=== PATIENT | female | born 1935 | race Caucasian/White ===

== ENCOUNTER 2016-07-07 12:14 | Outpatient (CLI) | payer MEDICARE, OTHER | END 2016-07-07 12:15 | disposition home or self-care (01) | DX: M81.0 Age-related osteoporosis without current pathological fracture (principal) ==

== ENCOUNTER 2016-12-12 12:34 | Outpatient (CLI) | payer MEDICARE, OTHER ==
--- NOTE | 2016-12-13 08:37 | XRAY Report ---
TWO VIEW LUMBAR SPINE: 12/12/2016 CLINICAL INDICATION: History of stenosis, fall, pain. Frontal and lateral views of the lumbar spine demonstrate previous L1 vertebroplasty, with posterior froylan and pedicle screw fusion spanning from T9 to the iliac wings. There is no evidence of hardware c omplication. L2 through L5 demonstrate normal height. Postoperative changes of posterior decompress ion and bone graft material are noted. IMPRESSION: EXTENSIVE POSTOPERATIVE CHANGES. NO EVIDENCE OF FRACTURE IN THE LUMBAR SPINE. PLEASE A LSO REFER TO THORACIC SPINE FILMS OF THE SAME DAY. JOB #: [id number] EXT JOB #:[id number]
--- NOTE | 2016-12-13 08:39 | XRAY Report ---
TWO VIEW THORACIC SPINE: 12/12/2016 CLINICAL INDICATION: Fall this morning, thoracic spine pain. Frontal and lateral views of the thoracic spine demonstrate posterior froylan and pedicle screw fusion, w ith pedicle screws at T10, T11, and T12, and pedicle hooks at T9. There is a T10 compression fractur e, with approximately 40% anterior height loss. The upper thoracic spine appears unremarkable. IMPRESSION: T10 COMPRESSION FRACTURE, WITH APPROXIMATELY 40% ANTERIOR HEIGHT LOSS. NO EVIDENCE OF H ARDWARE COMPLICATION. JOB #: [id number] EXT JOB #:[id number]
== END 2016-12-12 12:35 | disposition home or self-care (01) ==
LOC: DI 12:34
PROVIDERS: ATTEND Internal Medicine
DX: S22.079A Unspecified fracture of T9-T10 vertebra, initial encounter for closed fracture (principal); M48.06 Spinal stenosis, lumbar region; Z98.1 Arthrodesis status
CPT/HCPCS: 72070; 72100

== ENCOUNTER 2017-03-16 10:37 | Outpatient (CLI) | payer MEDICARE, OTHER | END 2017-03-16 10:38 | disposition home or self-care (01) | LOC: LAB 10:37 | PROVIDERS: ATTEND Otolaryngology | DX: E21.0 Primary hyperparathyroidism (principal) | CPT/HCPCS: 36415; 82306; 82310; 83970 ==

== ENCOUNTER 2017-04-09 13:22 | Outpatient (CLI) | payer MEDICARE, OTHER ==
--- NOTE | 2017-04-10 14:25 | Mammography Report ---
DIGITAL SCREENING MAMMOGRAM: 04/09/2017 CLINICAL INDICATION: An 81-year-old, for screening. COMPARISON: 08/2015, 11/2013, 09/2012, 06/2011, 06/2010. TECHNIQUE: Routine CC and MLO projections were obtained of the breasts. FINDINGS: The breasts again demonstrate scattered fibroglandular densities bilaterally. Coarse and p unctate, typically benign calcifications are present. No suspicious masses, clustered microcalcificat ions, or regions of architectural distortion are identified. IMPRESSION: BENIGN FINDINGS. RECOMMENDATION: ROUTINE ANNUAL SCREENING UNLESS OTHERWISE CLINICALLY INDICATED. BIRADS CATEGORY 2-BENIGN FINDINGS. STANDARD QUALIFYING STATEMENTS 1. This examination was reviewed with the aid of Computer-Aided Detection (CAD). 2. A negative or benign imaging report should not delay biopsy if clinically suspicious findings are present. Consider surgical consultation if warranted. More than 5% of cancers are not identified by i maging. 3. Dense breasts may obscure an underlying neoplasm. JOB #: [id number] EXT JOB #:[id number]
== END 2017-04-09 13:23 | disposition home or self-care (01) ==
LOC: DI 13:22
DX: Z12.31 Encounter for screening mammogram for malignant neoplasm of breast (principal)
CPT/HCPCS: 77067

== ENCOUNTER 2017-10-08 10:50 | Outpatient (CLI) | payer MEDICARE, OTHER | END 2017-10-08 10:51 | disposition home or self-care (01) | LOC: LAB.F 10:50 | PROVIDERS: ATTEND Internal Medicine | DX: Z51.81 Encounter for therapeutic drug level monitoring (principal); Z79.01 Long term (current) use of anticoagulants | CPT/HCPCS: 85610 ==

== ENCOUNTER 2017-10-15 10:47 | Outpatient (CLI) | payer MEDICARE, OTHER | END 2017-10-15 10:48 | disposition home or self-care (01) | LOC: LAB.F 10:47 | PROVIDERS: ATTEND Internal Medicine | DX: Z51.81 Encounter for therapeutic drug level monitoring (principal); Z79.01 Long term (current) use of anticoagulants | CPT/HCPCS: 85610 ==

== ENCOUNTER 2017-10-23 10:58 | Outpatient (CLI) | payer MEDICARE, OTHER | END 2017-10-23 10:59 | disposition home or self-care (01) | LOC: LAB.F 10:58 | PROVIDERS: ATTEND Internal Medicine | DX: Z51.81 Encounter for therapeutic drug level monitoring (principal); Z79.01 Long term (current) use of anticoagulants | CPT/HCPCS: 85610 ==

== ENCOUNTER 2017-10-28 10:28 | Outpatient (CLI) | payer MEDICARE, OTHER | END 2017-10-28 10:29 | disposition home or self-care (01) | LOC: LAB.F 10:28 | PROVIDERS: ATTEND Internal Medicine | DX: Z51.81 Encounter for therapeutic drug level monitoring (principal); Z79.01 Long term (current) use of anticoagulants | CPT/HCPCS: 85610 ==

== ENCOUNTER 2017-11-12 10:43 | Outpatient (CLI) | payer MEDICARE, OTHER | END 2017-11-12 10:44 | disposition home or self-care (01) | LOC: LAB.F 10:43 | PROVIDERS: ATTEND Internal Medicine | DX: Z51.81 Encounter for therapeutic drug level monitoring (principal); Z79.01 Long term (current) use of anticoagulants | CPT/HCPCS: 85610 ==

== ENCOUNTER 2017-11-19 10:48 | Outpatient (CLI) | payer MEDICARE, OTHER | END 2017-11-19 10:49 | disposition home or self-care (01) | LOC: LAB.F 10:48 | PROVIDERS: ATTEND Internal Medicine | DX: Z51.81 Encounter for therapeutic drug level monitoring (principal); Z79.01 Long term (current) use of anticoagulants | CPT/HCPCS: 85610 ==

== ENCOUNTER 2018-04-12 13:55 | Outpatient (CLI) | payer MEDICARE, OTHER ==
--- NOTE | 2018-04-14 05:57 | Mammography Report ---
Reason: ANNUAL SCREENING Procedure Date: 04/12/2018 Accession Number: [id number] / [id number] Procedure: KRISTEN - Screening Mammo Dig Bilat CPT Code: FULL RESULT: EXAM: Screening Mammo Dig Bilat DATE: 04/12/2018 4:54 PM CLINICAL HISTORY: 82-year-old female presents for screening. TECHNIQUE: Bilateral CC and MLO views were obtained. COMPARISON: 04/09/2017, 09/10/2015, 12/13/2013, 10/05/2012. FINDINGS: The breasts demonstrate heterogeneously dense fibroglandular parenchyma bilaterally. Typically benign vascular calcifications are identified bilaterally. Coarse typically benign calcifications are identified in the left breast. No suspicious masses, clustered microcalcifications, or regions of architectural distortion are identified. IMPRESSION: Benign findings RECOMMENDATION: Routine annual screening unless otherwise clinically indicated. BIRADS CATEGORY 2: Benign findings STANDARD QUALIFYING STATEMENTS: 1. This examination was not reviewed with the aid of Computer-Aided Detection (CAD). 2. A negative or benign imaging report should not delay biopsy if clinically suspicious findings are present. Consider surgical consultation if warranted. More than 5% of cancers are not identified by imaging. 3. Dense breasts may obscure an underlying neoplasm. 4. This examination was reviewed without the aid of 3D breast imaging (tomosynthesis).
== END 2018-04-12 13:56 | disposition home or self-care (01) ==
LOC: DI 13:55
DX: Z12.31 Encounter for screening mammogram for malignant neoplasm of breast (principal)
CPT/HCPCS: 77067

== ENCOUNTER 2019-06-02 18:24 | Outpatient (CLI) | payer MEDICARE, OTHER | END 2019-06-02 18:25 | disposition critical access hospital (66) | LOC: EMS 18:24 | PROVIDERS: ATTEND Surgery | DX: M25.551 Pain in right hip (principal); W01.0XXA Fall on same level from slipping, tripping and stumbling without subsequent striking against object, initial encounter; Y93.H2 Activity, gardening and landscaping; Y92.007 Garden or yard of unspecified non-institutional (private) residence as the place of occurrence of the external cause | CPT/HCPCS: A0425; A0427 ==

== ENCOUNTER 2019-06-02 18:40 | Emergency (ER) | payer MEDICARE, OTHER ==
--- NOTE | 2019-06-02 18:53 | ED Physician Documentation ---
PD HPI LOWER EXT INJURY - Stated complaint Stated Complaint: GLF/HIP PAIN - History obtained from History obtained from: Patient, EMS - History of Present Illness PD HPI LOW EXT INJURY LOCATION: Right (83-year-old woman with history of hyperte nsion, Parkinson's disease, right knee replacement. She tripped and fell in her driveway landing on the right hip. An isolated injury. Pain is severe, and has a deformity.) Review of Systems Ten Systems: 10 systems reviewed and negative Constitutional: reports: Reviewed and negative Throat: reports: Reviewed and negative Cardiac: reports: Reviewed and negative Respiratory: reports: Reviewed and negative PD PAST MEDICAL HISTORY - Past Medical History Past Medical History: Yes Neuro: Parkinson's - Past Surgical History Past Surgical History: Yes - Present Medications Home Medications: Ambulatory Orders Medication Instructions Recorded Confirmed Ascorbic Acid [Vitamin C] 500 mg PO DAILY 02/25/19 02/25/19 Calcium Carbonate 1,000 mg PO DAILY 02/25/19 02/25/19 Carbidopa/Levodopa [Carbidopa-Levo 3 tab PO DAILY PM 02/25/19 02/25/19 ER 25-100 Tab] Carbidopa/Levodopa 1 each PO DAILY 02/25/19 02/25/19 [Carbidopa-Levodopa 25-100 Tab] Gabapentin 100 mg PO DAILY 02/25/19 02/25/19 Gabapentin 300 mg PO QPM 02/25/19 02/25/19 Metoprolol Tartrate 25 mg PO DAILY 02/25/19 02/25/19 Pramipexole [Mirapex] 0.25 mg ORAL DAILY 02/25/19 02/25/19 - Allergies Allergies/Adverse Reactions: Allergies Allergy/AdvReac Type Severity Reaction Status Date / Time morphine AdvReac Unknown Verified 06/02/19 19:04 - Social History Does the pt smoke?: No Does the pt drink ETOH?: No Does the pt have substance abuse?: No PD ED PE NORMAL - Vitals Vital signs reviewed: Yes - General General: Alert and oriented X 3 (She has a resting tremor consistent with Parkinson's disease, she appears to be in pain. She also has some hives near her IV after the morphine consistent with histamine release in that area.) - HEENT HEENT: PERRL, EOMI - Neck Neck: Supple, no meningeal sign, No bony TTP - Cardiac Cardiac: RRR, No murmur - Respiratory Respiratory: No respiratory distress, Clear bilaterally - Abdomen Abdomen: Normal bowel sounds, Non tender - Back Back: No CVA TTP, No spinal TTP - Derm Derm: Normal color, Warm and dry - Extremities Extremities: Other (The right hip is deformed, shortened and externally rotated. Not too tender but she has severe pain with rotation of the right knee. The knee itself and the ankle are nontender.) - Neuro Neuro: Alert and oriented X 3, Normal speech Results - Vitals Vitals: Vital Signs - 24 hr 06/02/19 06/02/19 06/02/19 18:41 20:14 22:04 Temperature 36.8 C Heart Rate 77 92 78 Respiratory 18 18 18 Rate Blood Pressure 179/91 H 156/78 H 105/52 L O2 Saturation 96 94 84 L Oxygen O2 Source Room air - EKG (time done) 1903 Rate: Rate (enter#) (95) Rhythm: NSR (with pvcs) Intervals: LBBB Computer interpretation: Disagree with computer - Labs Labs: Laboratory Tests 06/02/19 06/02/19 06/02/19 19:00 19:00 19:00 WBC 4.9 RBC 5.54 H Hgb 15.7 Hct 48.3 H MCV 87.2 MCH 28.3 MCHC 32.5 RDW 13.3 Plt Count 195 MPV 9.5 Neut # (Auto) 3.6 Lymph # (Auto) 0.9 L Mcintosh # (Auto) 0.3 Eos # (Auto) 0.1 Baso # (Auto) 0.0 Absolute Nucleated RBC 0.00 Nucleated RBC % 0.0 PT 11.8 INR 1.0 Sodium 140 Potassium 3.8 Chloride 102 Carbon Dioxide 25 Anion Gap 13.0 BUN 19 Creatinine 0.7 Estimated GFR (MDRD) 80 L Glucose 120 H Calcium 9.9 Total Bilirubin 1.0 AST 18 ALT < 10 L Alkaline Phosphatase 55 Total Protein 7.5 Albumin 4.7 Globulin 2.8 Albumin/Globulin Ratio 1.7 Lipase 40 Blood Type Blood Type Recheck Antibody Screen 06/02/19 06/02/19 19:00 20:16 WBC RBC Hgb Hct MCV MCH MCHC RDW Plt Count MPV Neut # (Auto) Lymph # (Auto) Mcintosh # (Auto) Eos # (Auto) Baso # (Auto) Absolute Nucleated RBC Nucleated RBC % PT INR Sodium Potassium Chloride Carbon Dioxide Anion Gap BUN Creatinine Estimated GFR (MDRD) Glucose Calcium Total Bilirubin AST ALT Alkaline Phosphatase Total Protein Albumin Globulin Albumin/Globulin Ratio Lipase Blood Type O POSITIVE Blood Type Recheck O POSITIVE Antibody Screen NEGATIVE - Rads (name of study) R hip XR Radiology: EMP read contemporaneously (femoral neck frx) 1v chest Radiology: EMP read contemporaneously (interstitial prominence, poss ANGIE infiltrate (doesn't match clinical picture, ie no cough, WBC count etc)) PD MEDICAL DECISION MAKING - ED course ED course: 83-year-old woman presents with isolated hip injury, fracture on x-ray. Spoke with Dr. Kobe Hannon, our on-call orthopedist. After he reviewed the case he recommended transfer to a higher level of care because evidently per his review of the literature, patients with Parkinson's have a higher rate of hip prosthetic dislocation when done with a lateral or posterior approach which is how this facility does its hip replacements and recommended transfer to a [facility] with ability to do a hemiarthroplasty with an anterior approach. Per discussion with the patient, she had her knee done by Dr. Villegas at [facility] and prefers transfer back there under his care and they were called about 7:45 PM. I spoke with Dr. Wyatt Munoz, orthopedic surgeon motion picture printer there at [facility]. He I think disagreed with our orthopedic surgeon a little bit and probably plans to do a posterior approach anyway but will see the patient in consult, defer to the hospitalist service there for formal acceptance. Accepted by Dr. Love to [facility] at 10:40 PM and cobras were completed. Departure - Departure Disposition: 02 Transfer Acute Care Hosp Clinical Impression: Displaced fracture of right femoral neck, Hypertension, Parkinsons disease Condition: Serious
[2019-06-02] MEDS: fentaNYL 100 MCG/2 ML VIAL IVP STA ×3 (19:10→23:10)
[2019-06-02 19:11] LABS: BASOPHILS % (AUTO) 0.8 %; EOSINOPHILS # (AUTO) 0.1 10^3/uL (0.0-0.7); HGB - HEMOGLOBIN 15.7 g/dL (12.0-16.0); LYMPHOCYTES # (AUTO) 0.9 10^3/uL (1.5-3.5); LYMPHOCYTES % (AUTO) 18.5 %; MEAN CORPUSCULAR HEMOGLOBIN 28.3 pg (27.0-31.0); MEAN CORPUSCULAR HGB CONC 32.5 g/dL (32.0-36.0); MEAN CORPUSCULAR VOLUME 87.2 fL (81.0-99.0); MEAN PLATELET VOLUME 9.5 fL (7.9-10.8); MONOCYTES # (AUTO) 0.3 10^3/uL (0.0-1.0); MONOCYTES % (AUTO) 6.7 %; NEUTROPHILS # (AUTO) 3.6 10^3/uL (1.5-6.6); NEUTROPHILS % (AUTO) 72.4 %; PLT - PLATELET COUNT 195 10^3/uL (130-450); RED BLOOD COUNT 5.54 10^6/uL (4.20-5.40); RED CELL DISTRIBUTION WIDTH 13.3 % (12.0-15.0); WHITE BLOOD COUNT 4.9 x10^3/uL (4.8-10.8)
[2019-06-02 19:19] LABS: ALBUMIN 4.7 g/dL (3.2-5.5); ALBUMIN/GLOBULIN RATIO 1.7 (1.0-2.2); ALKALINE PHOSPHATASE 55 IU/L (42-121); ALT ALANINE AMINOTRANSFERASE < 10 IU/L (10-60); AST ASPARTATE AMINOTRANSFERASE 18 IU/L (10-42); BUN - BLOOD UREA NITROGEN 19 mg/dL (6-20); CALCIUM 9.9 mg/dL (8.5-10.3); CARBON DIOXIDE - CO2 25 mmol/L (21-32); CHLORIDE 102 mmol/L (101-111); CREATININE 0.7 mg/dL (0.4-1.0); GFR - MDRD 80 (>89); GLUCOSE 120 mg/dL (70-100); LIPASE 40 U/L (22-51); SODIUM 140 mmol/L (135-145); TOTAL PROTEIN 7.5 g/dL (6.7-8.2)
[2019-06-02 19:20] LABS: PT - PROTHROMBIN TIME 11.8 secs (9.9-12.6)
--- NOTE | 2019-06-02 20:04 | XRAY Report ---
Reason: hip inj Procedure Date: 06/02/2019 Accession Number: [id number] / [id number] Procedure: XR - Hip w/Pelvis 2-3V RT CPT Code: Final Report FULL RESULT: EXAM: PELVIS AND RIGHT HIP RADIOGRAPHY EXAM DATE: 06/02/2019 07:27 PM. CLINICAL HISTORY: Trauma, pain. COMPARISON: OUTSIDE XR - LUMBAR 01/09/2016 2:40 PM. TECHNIQUE: Pelvis and right hip, each 1 view. FINDINGS: Bones: Right femoral neck fracture with about 40% apposition and apex lateral angulation. Extensive postoperative changes in the lower lumbar spine and SI region. Joints: Minimal bilateral hip joint space narrowing. Soft Tissues: Soft tissue swelling. IMPRESSION: Right femoral neck fracture. RADIA
--- NOTE | 2019-06-02 20:23 | XRAY Report ---
Reason: preop Procedure Date: 06/02/2019 Accession Number: [id number] / [id number] Procedure: XR - Chest 1 View X-Ray CPT Code: 57956 Final Report FULL RESULT: EXAM: CHEST RADIOGRAPHY EXAM DATE: 06/02/2019 07:28 PM. CLINICAL HISTORY: Preop. COMPARISON: None. TECHNIQUE: 1 view. FINDINGS: Lungs/Pleura: Coarse interstitial markings with some septal lines. Subtle added density in left upper lung zone versus artifact. No other Localized infiltrate, consolidation, effusion, or pneumothorax. Probable calcified granuloma in left base. Mediastinum: Within exam limitations, the cardiomediastinal contour is normal. Other: Extensive postoperative changes of the spine. IMPRESSION: Interstitial prominence with possible left upper lobe infiltrate versus artifact. RADIA
[2019-06-02 23:24] VITALS: BP 100/64
== END 2019-06-02 23:38 | disposition short-term general hospital (02) ==
LOC: EDUNIT# → ED 18:40
DX: S72.001A Fracture of unspecified part of neck of right femur, initial encounter for closed fracture (principal); W01.0XXA Fall on same level from slipping, tripping and stumbling without subsequent striking against object, initial encounter; Y92.008 Other place in unspecified non-institutional (private) residence as the place of occurrence of the external cause; L50.9 Urticaria, unspecified; T40.2X5A Adverse effect of other opioids, initial encounter; Y92.238 Other place in hospital as the place of occurrence of the external cause; G20 Parkinson's disease; I10 Essential (primary) hypertension; Z96.651 Presence of right artificial knee joint; Z79.899 Other long term (current) drug therapy
CPT/HCPCS: 36415; 51702; 71045; 80053; 83690; 85025; 85610; 86850; 86900; 86901; 93005; 96374; 96376; 99285

== ENCOUNTER 2019-06-02 23:40 | Outpatient (CLI) | payer MEDICARE, OTHER | END 2019-06-02 23:41 | disposition short-term general hospital (02) | LOC: EMS 23:40 | PROVIDERS: ATTEND Surgery | DX: S72.001A Fracture of unspecified part of neck of right femur, initial encounter for closed fracture (principal) | CPT/HCPCS: A0425; A0426 ==

== ENCOUNTER 2019-07-12 12:02 | Emergency (ER) | payer MEDICARE, OTHER ==
[2019-07-12 12:28] VITALS: BP 160/74
--- NOTE | 2019-07-12 13:11 | ED Physician Documentation ---
PD HPI LOWER EXT INJURY - Stated complaint Stated Complaint: RT LEG SWELLING - Chief complaint Chief Complaint: Ext Problem - History obtained from History obtained from: Patient - History of Present Illness PD HPI LOW EXT INJURY LOCATION: Left, Lower leg Type of injury: No: Fall, Twist Where injury occurred: Home Timing - onset: Other (noting pain in calf/lower leg for several days. Some pain to the groin as well.) Timing - duration: Days Timing - details: Gradual onset, Waxing and waning Improved by: Rest Worsened by: Moving (walking and moving ankle downward causes some pain in calf.). No: Palpating Associated symptoms: No: Weakness, Numbness, Swelling Contributing factors: Prior ortho surgery (a month ago, right hip surgery.) Recently seen: Clinic (Has been doing some physical therapy on the leg and around the knee and ankle the last week or so.), Surgery (She had a right hip replacement due to acute fracture a month ago and is been healing from that.) Review of Systems Constitutional: denies: Fever, Chills Cardiac: denies: Chest pain / pressure Respiratory: denies: Dyspnea Neurologic: denies: Focal weakness, Numbness PD PAST MEDICAL HISTORY - Past Medical History Cardiovascular: Other Respiratory: None Neuro: Parkinson's Endocrine/Autoimmune: None GI: None AFFILIATE MARKETING COORDINATOR: None : None HEENT: Chronic vision loss Psych: None Musculoskeletal: Osteoarthritis Derm: None - Past Surgical History Past Surgical History: Yes Ortho: Hip replacement, Knee replacement /AFFILIATE MARKETING COORDINATOR: Hysterectomy HEENT: Tonsil/Adenoidectomy - Present Medications Home Medications: Ambulatory Orders Medication Instructions Recorded Confirmed Ascorbic Acid [Vitamin C] 500 mg PO DAILY 02/25/19 02/25/19 Calcium Carbonate 1,000 mg PO DAILY 02/25/19 02/25/19 Carbidopa/Levodopa [Carbidopa-Levo 3 tab PO DAILY PM 02/25/19 02/25/19 ER 25-100 Tab] Carbidopa/Levodopa 1 each PO DAILY 02/25/19 02/25/19 [Carbidopa-Levodopa 25-100 Tab] Gabapentin 100 mg PO DAILY 02/25/19 02/25/19 Gabapentin 300 mg PO QPM 02/25/19 02/25/19 Metoprolol Tartrate 25 mg PO DAILY 02/25/19 02/25/19 Pramipexole [Mirapex] 0.25 mg ORAL DAILY 02/25/19 02/25/19 - Allergies Allergies/Adverse Reactions: Allergies Allergy/AdvReac Type Severity Reaction Status Date / Time morphine AdvReac Unknown Verified 07/12/19 12:08 - Social History Does the pt smoke?: No Smoking Status: Never smoker Does the pt drink ETOH?: No Does the pt have substance abuse?: No - Immunizations Immunizations are current?: Yes PD ED PE NORMAL - Vitals Vital signs reviewed: Yes - General General: Alert and oriented X 3, No acute distress, Well developed/nourished - Cardiac Cardiac: RRR, No murmur - Respiratory Respiratory: Clear bilaterally - Abdomen Abdomen: Soft, Non tender - Derm Derm: Normal color, Warm and dry, No rash - Extremities Extremities: No edema, Other (right hip with healing wound. no signs of infection. There is some tenderness in lower calf muscle. No skin redness. NO swelling. ) - Neuro Neuro: Alert and oriented X 3, No motor deficit, No sensory deficit Results - Vitals Vitals: Vital Signs - 24 hr 07/12/19 07/12/19 12:08 12:25 Temperature 36.8 C 36.6 C Heart Rate 94 86 Respiratory 18 16 Rate Blood Pressure 153/88 H 160/74 H O2 Saturation 100 97 Oxygen O2 Source Room air - Rads (name of study) duplex US right leg Radiology: Prelim report reviewed (no DVT), See rad report PD MEDICAL DECISION MAKING - ED course Complexity details: considered differential (groin pain likely from healing hip replacement. The calf pain seems muscular and likely related to recent onset more physical therapy exercises of the lower leg. DVT needed to be considered and excluded. ), d/w patient Departure - Departure Disposition: 01 Home, Self Care Clinical Impression: Lower leg pain Qualifiers: Laterality: right Qualified Code(s): M79.661 - Pain in right lower leg Status post hip replacement Qualifiers: Laterality: right Qualified Code(s): Z96.641 - Presence of right artificial hip joint Clinical Impression: (Ruled Out): Deep vein thrombosis Condition: Stable Record reviewed to determine appropriate education?: Yes Instructions: ED Strain Muscle Ext Comments: Your ultrasound is normal without any signs of blood clots. Presume the discomfort in the lower leg may be muscular. Continue with her usual activities and physical therapy. You can use some Tylenol if needed for discomfort 500 mg 4 times a day. Recheck if not improved well over the next several days to week and recheck in a week if persistent or worsening symptoms. Discharge Date/Time: 07/12/19 15:53
--- NOTE | 2019-07-12 15:40 | Ultrasound Report ---
Reason: right calf pain; hip surgery 4 weeks ago Procedure Date: 07/12/2019 Accession Number: [id number] / [id number] Procedure: US - Duplex Ext Veins Right CPT Code: Final Report FULL RESULT: EXAM: RIGHT LOWER EXTREMITY VENOUS ULTRASOUND EXAM DATE: 07/12/2019 03:12 PM. CLINICAL HISTORY: Right calf pain; hip surgery 4 weeks ago. COMPARISON: None. TECHNIQUE: Real-time sonographic vascular imaging was performed by the pottery decorator through the lower extremity utilizing both color-flow and Doppler spectral analysis. Multiple tax representative static images were saved for review. FINDINGS: Common Femoral Vein (CFV): Normal. CFV-GSV Junction: Normal. Profunda Femoral Vein (PFV): Normal. Femoral Vein (FV) Prox: Normal. Femoral Vein (FV) Mid: Normal. Femoral Vein (FV) Dist: Normal. Popliteal Vein: Normal. Posterior Tibial Veins: Normal. Peroneal Veins: Normal. IMPRESSION: No evidence for deep venous thrombosis. RADIA
== END 2019-07-12 15:53 | disposition home or self-care (01) ==
LOC: ED 12:02
DX: M79.661 Pain in right lower leg (principal); Z96.641 Presence of right artificial hip joint
CPT/HCPCS: 99284